=== PATIENT | female | born 1995 | race Caucasian/White ===

== ENCOUNTER 2024-09-12 01:52 | Emergency (ER) | payer MEDICAID ==
[~2024-09-12] VITALS: Ht 172.7 cm; Wt 59.3 kg
[2024-09-12 01:57] VITALS: BP 133/61; TEMP 37.1; O2SAT 100
[2024-09-12 02:14] LABS: CLARITY URINE TURBID (CLEAR); COLOR URINE RED (YELLOW); GLUCOSE URINE NEGATIVE (NEGATIVE); KETONES URINE NEGATIVE (NEGATIVE); LEUKOCYTE ESTERASE URINE 3+ (NEGATIVE); NITRITE URINE POSITIVE (NEGATIVE); OCCULT BLOOD URINE 2+ (NEGATIVE); PROTEIN URINE 2+ (NEGATIVE); SPECIFIC GRAVITY URINE 1.015 (1.005-1.030); UROBILINOGEN URINE 0.2 E.U./dL (0.2-1.0)
[2024-09-12] MEDS ORDERED: CEFP200T13 MT (02:54)
[2024-09-12 02:56] LABS: RBC URINE TNTC /hpf (0-2); SQUAMOUS EPITHELIAL CELL URINE FEW /lpf (RARE/1+); WBC URINE 50-100 /hpf (0-2)
[2024-09-12 02:57] LABS: BACTERIA URINE 1+
[2024-09-12 02:59] VITALS: PULSE 91; RESP 16; O2SAT 99
== END 2024-09-12 03:03 | disposition home or self-care (01) ==
LOC: ER 01:52
DX: N39.0 Urinary tract infection, site not specified (principal)
CPT/HCPCS: 81003; 81025; 87077; 87186; 99283

== ENCOUNTER 2024-11-07 12:47 | Emergency (ER) | payer MEDICAID, OTHER ==
[~2024-11-07] VITALS: Ht 175.3 cm; Wt 60.0 kg
[~2024-11-07 12:47] MED LIST: CEFP200T13 MT
[2024-11-07 12:53] VITALS: TEMP 36.9; O2SAT 99
[2024-11-07] MEDS: DIPHENHYDRAMINE 25MG CAPSULE PO ONE (15:23)
[2024-11-07] MEDS: PROCHLORPERAZINE MALEATE 10MG TABLET PO ONE (15:23)
[2024-11-07] MEDS: KETOROLAC 30MG/ML VIAL IM ONE (15:23)
[2024-11-07] MEDS: SUMATRIPTAN SUCCINATE 25MG TABLET PO ONE (15:23)
[2024-11-07] MEDS: DEXAMETHASONE 4MG TABLET PO ONE (15:23)
[2024-11-07] MEDS ORDERED: FLUT15.844 BOTHNSTRLS (16:40)
[2024-11-07] MEDS ORDERED: SODI90SP BOTHNSTRLS (16:40)
[2024-11-07] MEDS ORDERED: LORA-859 MT (16:40)
[2024-11-07 17:06] VITALS: BP 106/68; PULSE 63; RESP 12; O2SAT 100
== END 2024-11-07 17:07 | disposition home or self-care (01) ==
LOC: ER 12:47
DX: H69.90 Unspecified Eustachian tube disorder, unspecified ear (principal); R51.9 Headache, unspecified; Z79.899 Other long term (current) drug therapy
CPT/HCPCS: 96372; 99284; J8540; Q0163; Q0164; J1885; Z7610